=== PATIENT | male | born 1965 | race African-American/Black ===

== ENCOUNTER 2018-02-11 00:32 | Inpatient (IN) | payer OTHER ==
[~2018-02-11] VITALS: Ht 175.3 cm; Wt 86.6 kg
[2018-02-11] MEDS: NITROGLYCERIN 0.4MG TABLET SL SL PRN ×3 (01:02→01:21)
[2018-02-11 01:10] LABS: BASOPHILS % 1.5 % (0.0-2.0); EOSINOPHILS % 1.8 % (0.0-5.0); HEMATOCRIT. 40.9 % (42.0-52.0); HEMOGLOBIN. 13.5 g/dL (14.0-18.0); LYMPHOCYTES % 34.7 % (20.0-50.0); MEAN CORPUSCULAR HEMOGLOBIN 29.7 pg (28.0-32.0); MEAN CORPUSCULAR VOLUME 89.6 fL (80.0-94.0); MEAN PLATELET VOLUME 7.1 fl (7.4-10.4); MONOCYTES % 10.6 % (2.0-8.0); NEUTROPHILS % 51.4 % (40.0-76.0); PLATELET 290 x1000/uL (130-400); RED BLOOD CELL COUNT 4.56 mill/uL (4.7-6.1); RED CELL DISTRIBUTION WIDTH 14.5 % (11.6-14.6)
[2018-02-11 01:16] LABS: CHLORIDE 102 mEq/L (98-107)
[2018-02-11 01:20] LABS: PARTIAL THROMBOPLASTIN TIME 27.5 sec (23.4-31.0); PROTHROMBIN TIME 10.5 sec (9.1-11.1)
[2018-02-11] MEDS ORDERED: MORPHINE SULFATE 4 MG/ML CPJ (NOT FOR IM USE) IV ONE (01:45)
[2018-02-11 05:09] VITALS: BP 130/83
[2018-02-11] MEDS ORDERED: MAGNESIUM/ALUMINUM HYDROXIDE/SIMETHICONE 30ML UDC PO PRN (05:45)
[2018-02-11] MEDS ORDERED: ONDANSETRON HCL 4MG/2ML INJ IV PRN (05:45)
[2018-02-11] MEDS ORDERED: MORPHINE SULFATE 4 MG/ML CPJ (NOT FOR IM USE) IV PRN (05:45)
[2018-02-11] MEDS ORDERED: ACETAMINOPHEN 325MG TABLET PO PRN (05:45)
[2018-02-11] MEDS ORDERED: DIPHENHYDRAMINE 50MG/ML VIAL IV PRN (05:45)
[2018-02-11] MEDS ORDERED: CLONIDINE 0.1MG TABLET PO PRN (05:45)
[2018-02-11] MEDS: SODIUM CHLORIDE 0.9% INJ 3ML FLUSH IVF SCH ×3 (06:48→20:35)
[2018-02-11 08:00] VITALS: BP 127/85
[2018-02-11] MEDS: ASPIRIN 81MG EC TABLET PO SCH (08:54)
[2018-02-11] MEDS: ENOXAPARIN 40MG/0.4ML SYR SUBCUT SCH (08:54)
[2018-02-11 12:00] VITALS: BP 128/87
[2018-02-11] MEDS ORDERED: REGADENOSON 0.4 MG/5 ML IV ONE (13:00)
[2018-02-11 16:00] VITALS: BP 114/77
[2018-02-11 20:00] VITALS: BP 117/80
[2018-02-12] VITALS: BP 131/81
[2018-02-12 04:00] VITALS: BP 119/78
[2018-02-12] MEDS: SODIUM CHLORIDE 0.9% INJ 3ML FLUSH IVF SCH (05:56)
[2018-02-12 08:00] VITALS: BP 109/82
[2018-02-12] MEDS ORDERED: REGADENOSON 0.4 MG/5 ML IV ONE ×2 (08:31→08:35)
[2018-02-12] MEDS: ENOXAPARIN 40MG/0.4ML SYR SUBCUT SCH (10:00)
[2018-02-12] MEDS: ASPIRIN 81MG EC TABLET PO SCH (10:00)
[2018-02-12 12:00] VITALS: BP 104/71
[2018-02-12 13:23] VITALS: BP 104/71
== END 2018-02-12 14:05 | disposition home or self-care (01) | DRG 203 ==
LOC: ER 00:45 → 5WST 01:38 → EDBEDREQ 01:43 → ENRESERV 03:12
PROVIDERS: ADMIT Internal Medicine; ATTEND Internal Medicine
DX: R07.89 Other chest pain (principal); F17.210 Nicotine dependence, cigarettes, uncomplicated; Z72.89 Other problems related to lifestyle; Z80.6 Family history of leukemia; Z88.0 Allergy status to penicillin; Z91.018 Allergy to other foods
CPT/HCPCS: 36415; 71045; 78452; 80053; 83880; 84484; 85025; 85610; 85730; 93005; 93017; 93970; 96374; 99285; A9500; J1650; J2270; J2785

== ENCOUNTER 2019-02-26 16:11 | Emergency (ER) | payer OTHER ==
[~2019-02-26] VITALS: Ht 172.7 cm; Wt 82.0 kg
[2019-02-26] MEDS ORDERED: MAGNESIUM/ALUMINUM HYDROXIDE/SIMETHICONE 30ML UDC PO ONE (17:00)
[2019-02-26] MEDS ORDERED: VISCOUS LIDOCAINE 2% 15 ML UDC PO ONE (17:00)
[2019-02-26 17:18] LABS: CHLORIDE 109 mEq/L (98-107)
[2019-02-26 17:28] LABS: BASOPHILS % 2.1 % (0.0-2.0); EOSINOPHILS % 1.3 % (0.0-5.0); HEMATOCRIT. 41.9 % (42.0-52.0); HEMOGLOBIN. 14.2 g/dL (14.0-18.0); LYMPHOCYTES % 42.1 % (20.0-50.0); MEAN CORPUSCULAR HEMOGLOBIN 30.7 pg (28.0-32.0); MEAN CORPUSCULAR VOLUME 90.9 fL (80.0-94.0); MEAN PLATELET VOLUME 7.7 fl (7.4-10.4); MONOCYTES % 9.6 % (2.0-8.0); NEUTROPHILS % 44.9 % (40.0-76.0); PLATELET 277 x1000/uL (130-400); RED BLOOD CELL COUNT 4.61 mill/uL (4.7-6.1); RED CELL DISTRIBUTION WIDTH 14.4 % (11.6-14.6)
[2019-02-26] MEDS ORDERED: ASPIRIN 81MG TABLET PO ONE (18:15)
[2019-02-26] MEDS ORDERED: KETOROLAC 30MG/ML VIAL IV ONE (18:15)
[2019-02-26 21:14] VITALS: BP 144/96
== END 2019-02-26 21:17 | disposition home or self-care (01) ==
LOC: ER 16:11
DX: R07.89 Other chest pain (principal); R20.0 Anesthesia of skin; F12.10 Cannabis abuse, uncomplicated; F17.200 Nicotine dependence, unspecified, uncomplicated; Z88.0 Allergy status to penicillin
CPT/HCPCS: 36415; 71045; 80053; 83880; 84484; 85025; 93005; 96374; 99284; J1885; Z7610

== ENCOUNTER 2022-05-04 17:30 | Emergency (ER) | payer SELFPAY ==
[~2022-05-04] VITALS: Ht 175.3 cm; Wt 84.0 kg
[2022-05-04 17:36] VITALS: BP 118/71
== END 2022-05-04 21:21 | disposition left against medical advice (07) ==
LOC: ER 17:30
DX: Z53.21 Procedure and treatment not carried out due to patient leaving prior to being seen by health care provider (principal); Z88.0 Allergy status to penicillin
CPT/HCPCS: A4565

== ENCOUNTER 2023-01-29 10:04 | Emergency (ER) | payer SELFPAY ==
[~2023-01-29] VITALS: Ht 177.8 cm; Wt 80.0 kg
[2023-01-29 10:06] VITALS: BP 118/88; PULSE 99; RESP 18; O2SAT 97
[2023-01-29 11:30] VITALS: TEMP 98.1
[2023-01-29] MEDS ORDERED: ACETAMINOPHEN 325MG TABLET PO ONE (11:30)
[2023-01-29] MEDS ORDERED: IBUP-2028 MT (12:49)
[2023-01-29] MEDS ORDERED: TOPUD MT (12:49)
[2023-01-29] MEDS ORDERED: ACETAMINOPHEN 325MG TABLET PO NR (14:15)
== END 2023-01-29 14:24 | disposition home or self-care (01) ==
LOC: ER 10:15
DX: R07.81 Pleurodynia (principal); F12.10 Cannabis abuse, uncomplicated; Z88.0 Allergy status to penicillin
CPT/HCPCS: 71101; 99283